=== PATIENT | female | born 1970 | race Caucasian/White ===

== ENCOUNTER 2021-07-04 16:03 | Emergency (ER) | payer OTHER, SELFPAY ==
--- NOTE | 2021-07-04 16:00 | DI.RAD_ITS ---
Exam(s) XR KNEE LT 3V AP,LAT,GIL EXAM: XR KNEE LT 3V AP,LAT,GIL CLINICAL HISTORY: Left knee injury. TECHNIQUE: 2D digital imaging was performed of the left knee. Three images were obtained. AP, AP t unnel and lateral views were obtained. COMPARISON: No exams were available for comparison FINDINGS: BONES: There is an acute fracture involving the proximal tibia. The fractures intra-articular invol ving the tibial spines and the lateral tibial plateau. No bony destructive lesion is seen. JOINTS: The knee is normally aligned. There is a large hemarthrosis. SOFT TISSUE: Soft tissue swelling is present. IMPRESSION: Comminuted intra-articular fracture involving the proximal left tibia as described. Please see the C T scan of the left knee report for complete details. DATA REPOSITORY: RADIATION DOSE DELIVERED:
[2021-07-04 16:12] VITALS: BP 115/97; PULSE 77; RESP 16; TEMP 36.3; O2SAT 98
--- NOTE | 2021-07-04 16:19 | ED.GENADUL_ITS ---
Discharge Plan Disposition Patient Disposition: HOME Condition: Stable Discharge Details Clinical Impression: Closed fracture of left tibial plateau Primary Care Provider: Unknown,Unknown ED Provider: Uma Price Home Meds and New Rx's Prescriptions: No Action naproxen sodium [Aleve] 220 mg Capsule 440 mg PO PRN PRNRF: 0 Discharge Instructions Instructions: Leg Fracture (ED) Additional Instructions: Please follow-up with an orthopedic doctor within the next week. Remain non-weight bearing until cleared by Ortho MD. rest, ice, compression, elevation. Wear the knee immobilizer continuously except for bathing. Do not place any weight on your left leg. Use the crutches as instructed. Please take Tylenol or Ibuprofen with food every 4-6 hours as needed for pain and swelling. Take the tramadol as needed for moderate to severe pain. Discharge Data Discharge Date/Time-TO BE ENTERED AT DEPARTURE: 07/04/21 18:34 Medical Decision Making 50 year old female presents to ED c/o left knee pain s/p skiing accident earlier today. Patient states she went over a bump and landed wrong, lost her right ski but her left ski stayed on. She then was hit by another skier and fell again. She was wearing a helmet and reports possibly hitting her head on the first fall. She endorses mild REED, Denies Chest pain, abd pain, or neck or back pain. Left knee is swollen on my initial examination. No obvious deformity. Distal CMS intact. Took an Aleve this am prior to accident. XR and Ibuprofen ordered. Imaging protocol: CT of the Left lower extremity with intravenous contrast was performed. Exam focused on the knee. COMPARISON: CR XR KNEE LT 3V AP,LAT,GIL 07/04/2021 5:17 PM FINDINGS: Bones/joints: Moderate to large hemarthrosis. There is a comminuted acute appearing minimally displaced/depressed proximal tibial fracture with involvement of both the medial and lateral tibial plateaus as well as the tibial spine. Soft tissues: Mild soft tissue swelling along the anterior aspect of the knee. IMPRESSION: Acute proximal tibial fracture. Thank you for allowing us to participate in the care of your patient. Dictated and Authenticated by: Tim Fuller DO COMPARISON: CR XR KNEE LT 3V AP,LAT,GIL 07/04/2021 5:17 PM FINDINGS: Bones/joints: Moderate to large hemarthrosis. There is a comminuted acute appearing minimally displaced/depressed proximal tibial fracture with involvement of both the medial and lateral tibial plateaus as well as the tibial spine. Soft tissues: Mild soft tissue swelling along the anterior aspect of the knee. IMPRESSION: Acute proximal tibial fracture. Spoke with Dr. Black with orthopedic surgery he recommends knee immobilizer and crutches and nonweightbearing status. Discussed x-ray and CT results with patient who verbalized understanding. Patient is from out of town and will follow-up with orthopedics within the next week in her home town. Discussed home care nonweightbearing status patient discharged with a knee immobilizer and crutches to tramadol to go. Instructed on RICE procedures and Tylenol ibuprofen. This text was generated using [employer] dictation system, please disregard any oddities of phrase or misspellings. HPI General Mode of arrival: wheelchair . Date/Time Provider Initiated Documentation: 07/04/21 16:09 . Limitations to Documentation: no limitations . Information obtained by: patient and RN notes reviewed . HPI Narrative: 50 year old female presents to ED c/o left knee pain s/p skiing accident earlier today. Patient states she went over a bump and landed wrong, lost her right ski but her left ski stayed on. She then was hit by another skier and fell again. She was wearing a helmet and reports possibly hitting her head on the first fall. She endorses mild REED, Denies Chest pain, abd pain, or neck or back pain. Left knee is swollen on my initial examination. No obvious deformity. Distal CMS i ntact. Took an Aleve this am prior to accident. Related Data Home Medications Medication Instructions Recorded Confirmed naproxen sodium [Aleve] 440 mg PO PRN PRN 07/04/21 07/04/21 Allergies Allergy/AdvReac Type Severity Reaction Status Date / Time No Known Allergies Allergy Unverified 07/04/21 16:17 General Stated Complaint: Trauma MATA: 3 Review of Systems All systems reviewed & are unremarkable except as noted in HPI and below PFSH All Active Problems (Updated 07/04/21 @ 18:11 by Uma Price) Closed fracture of left tibial plateau (Acute) Social History Smoking/Tobacco Use Status: Never Smoking risk assessment performed?: Yes Alcohol Intake: current Alcohol Intake frequency: a few times a month Substance use type: does not use Do you feel safe at home: Yes Do you feel safe in your relationship?: Yes Exam Narrative Exam Narrative: General: Well Developed, Awake and Alert, conversant. Skin: Warm and Dry HEENT: Head: No palpable deformities, Normocephalic Eyes: Pupils PERRLA, EOM's intact. No periorbital eccymosis or step off Ears: Canal patent. Tympanic membranes are clear . No aguilera's sign, no hemptympanum. Nose/Face: Atraumatic. Facial bones nontender to palpation and stable with manipulation. Mouth/Throat: No intraoral trauma. Teeth and mandible are intact. Neck: No midline tenderness, no step off, no deformity to palpation of C-spine. Trachea midline. Chest: No surface trauma. Nontender without crepitus or deformity. Lungs clear to ausculatation bilaterally. Heart: RRR, no rubs, murmurs or gallop. Abdomen: No abrasions, ecchymosis, or surface trauma. Nondistended. Nontender to palpation no guarding, rebound, or rigidity. Pelvis: Nontender to palpation and stable to compression. Femoral pulses strong and equal Extremities: no surface trauma. Sensation intact. Peripheral pulses intact and equal. See extremity below, lateral swelling right noted, no obvious deformity, mild ecchymosis noted in for patellar area. Neuro: ANO x4, GCS 15, cranial nerves II through XII intact. Motor and sensory exam nonfocal. Reflexes are symmetric. Extrem Left lower extremity: knee Details: tenderness Location: of the infrapatellar area and of the proximal tibia and swelling Location: of the infrapatellar area and of the proximal tibia Course Vital Signs Vital signs: Vital Signs Temperature 36.3 C L 07/04/21 16:12 Pulse 77 07/04/21 16:12 Respiratory Rate 16 07/04/21 16:12 Blood Pressure 115/97 H 07/04/21 16:12 Pulse Oximetry 98 07/04/21 16:12 Temperature 36.3 C L 07/04/21 16:12 Temperature Source Temporal Artery Scan 07/04/21 16:12 Pulse 77 07/04/21 16:12 Respiratory Rate 16 07/04/21 16:12 Blood Pressure 115/97 H 07/04/21 16:12 Blood Pressure Position Supine 07/04/21 16:12 Pulse Oximetry 98 07/04/21 16:12
[2021-07-04] MEDS: Ibuprofen 600 MG TAB PO (16:40)
--- NOTE | 2021-07-04 17:00 | DI.CT_ITS ---
Exam(s) CT LOWER EXTREMITY LT WO EXAM: CT LOWER EXTREMITY LT WO CLINICAL HISTORY: Knee Fracture. TECHNIQUE: Imaging Protocol: Axial computed tomography images with coronal and sagittal reformatted images were created and reviewed. COMPARISON: CR,XR XR KNEE LT 3V AP,LAT,GIL from 07/04/2021 FINDINGS: Bones: There is a comminuted acute fracture involving the proximal tibia. The fracture involves the anterolateral aspect of the medial tibial plateau in the posterior medial aspect of the lateral tibi al plateau. The posterior fracture extends distally into the metaphysis. There is mild depression o f the fracture involving the posterior aspect of the lateral tibial plateau. There is comminution of the tibial spines. There is no evidence of joint space narrowing or cystic degeneration seen. No ly tic or sclerotic lesions are identified. There is a large hemarthrosis. Soft Tissues: There is soft tissue swelling around the knee. IMPRESSION: Acute proximal tibial fracture and large hemarthrosis as described. RADIATION DOSE DELIVERED: 179.44mGy.cm Total DLP 179.44mGy.cm Total DLP DATA REPOSITORY: All CT scans at this facility are submitted to the National Radiology Data Registry (NRDR) Dose Index Registry (DIR) with the [employer] (ACR). RADIATION OPTIMIZATION: All CT scans at this facility use at least one of these dose optimization te chniques: automated exposure control; mA and/or kV adjustment per patient size (includes targeted exa ms where dose is matched to clinical indication); or iterative reconstruction.
--- NOTE | 2021-07-04 17:24 | DI.VRAD_ITS ---
PROCEDURE INFORMATION: Exam: XR Left Knee Exam date and time: 07/04/2021 4:09 PM Age: 50 years old Clinical indication: Injury or trauma; Fall; Blunt trauma; Knee; Left TECHNIQUE: Imaging protocol: XR Left knee. Views: 3 views. COMPARISON: No relevant images were readily available for comparison purposes. FINDINGS: Bones/joints: There is a vertically oriented fracture through the proximal tibia with intra-articular extension which appears to involve the tibial spine. Prominent knee fusion. Soft tissues: Soft tissue swelling. IMPRESSION: Acute proximal tibial fracture. Dictated and Authenticated by: Tim Fuller MD. Ordering:PEPITO Eaton MD
--- NOTE | 2021-07-04 17:42 | DI.VRAD_ITS ---
PROCEDURE INFORMATION: Exam: CT Left Lower Extremity With Contrast, Knee Exam date and time: 07/04/2021 5:15 PM Age: 50 years old Clinical indication: Injury or trauma; Fall; Blunt trauma; Knee; Left TECHNIQUE: Imaging protocol: CT of the Left lower extremity with intravenous contrast was performed. Exam focused on the knee. COMPARISON: CR XR KNEE LT 3V AP,LAT,GIL 07/04/2021 5:17 PM FINDINGS: Bones/joints: Moderate to large hemarthrosis. There is a comminuted acute appearing minimally displaced/depressed proximal tibial fracture with involvement of both the medial and lateral tibial plateaus as well as the tibial spine. Soft tissues: Mild soft tissue swelling along the anterior aspect of the knee. IMPRESSION: Acute proximal tibial fracture. Dictated and Authenticated by: Tim Fuller MD. Ordering:PEPTIO Eaton MD
[2021-07-04 18:31] VITALS: BP 114/68; PULSE 78; RESP 20; TEMP 36.6; O2SAT 99
== END 2021-07-04 18:34 | disposition home or self-care (01) ==
PROVIDERS: Emergency Provider Registered Nurse Emergency
DX: S82.142A Displaced bicondylar fracture of left tibia, initial encounter for closed fracture (principal); V00.321A Fall from snow-skis, initial encounter
CPT/HCPCS: 29505; 73562; 99284; 73700; 99283